=== PATIENT | male | born 1970 | race Caucasian/White ===

== ENCOUNTER 2023-02-01 18:10 | Emergency (ER) | payer OTHER ==
[~2023-02-01] VITALS: Ht 187.9 cm; Wt 136.1 kg
[~2023-02-01 18:10] MED LIST: CITALOPRAM40 MG PO; HYDROCHLOROTHIA25 MG PO; METFORMIN500 MG PO; NORVASC5 MG PO; PRIMIDONE50 MG PO
[2023-02-01] MEDS ORDERED: EPIPEN 2-P0.3 MG/0.3 IJ (18:20)
== END 2023-02-01 20:08 | disposition home or self-care (01) ==
LOC: ED 18:10
DX: T63.441A Toxic effect of venom of bees, accidental (unintentional), initial encounter (principal); T78.2XXA Anaphylactic shock, unspecified, initial encounter; I10 Essential (primary) hypertension; E11.9 Type 2 diabetes mellitus without complications; Z88.8 Allergy status to other drugs, medicaments and biological substances; X58.XXXA Exposure to other specified factors, initial encounter